=== PATIENT | female | born 1950 | race Caucasian/White ===

== ENCOUNTER 2022-12-16 11:00 | Outpatient (RCR) | payer MEDICARE, SELFPAY | END 2023-04-15 23:59 | disposition home or self-care (01) | PROVIDERS: PCP Physician Assistant Medical; Visit Provider Physician Assistant Medical | DX: M62.89 Other specified disorders of muscle (principal); Z51.89 Encounter for other specified aftercare | CPT/HCPCS: 97110; 97140; 97162; 97163; 97535 ==

== ENCOUNTER 2023-02-26 09:29 | Emergency (ER) | payer MEDICARE, SELFPAY ==
[2023-02-26 09:35] VITALS: BP 119/77; PULSE 68; RESP 16; TEMP 35.9; O2SAT 97; BMI 20.4
--- NOTE | 2023-02-26 09:55 | CRLHL7_ITS ---
For Patients: As a result of the Cures Act, medical imaging exams and procedure reports are released immediately into your electronic medical record. You may view this report before your referring provider. If you have questions, please contact your health care provider. Indication: New onset pain. Fall 6 weeks prior. Technique: PA chest, AP and oblique right ribs (3 images) Comparison: None Findings: There are fractures of the right 8th, 9th and 10th ribs, best demonstrated on the oblique radiographs of the right ribs, image 3). Minor blunting of the right lateral costophrenic angle is consistent with associated small pleural or extrapleural hematoma. No right pneumothorax. Impression: Fractures of the right 8th, 9th and 10th ribs associated with the small pleural or extrapleural hematoma. No right pneumothorax. Dictated by Yamil Caceres MD @ 02/26/2023 10:31:55 AM (Electronically Signed)
--- NOTE | 2023-02-26 09:55 | ED.GENADULT ---
HPI - General Adult General Stated complaint: fall 6 wk ago, pain flare up Time Seen by Provider: 02/26/23 09:45 History of Present Illness HPI narrative: Patient is a delightful 72-year-old female who fell while in [employer] stepped on her dress and landed on a chair arm on her right lateral chest wall area. She did not have this x-rayed at the time she was doing better and was getting improved. She got an RSV shot about 5 days ago and since then has had increasing pain in her right chest wall in the area that she fell. She has had no fever cough. No chills or rigors. She otherwise is very healthy other than she has a history of idiopathic alopecia. No other complaints, no rigors or chills. Hurts worth was with a deep breath. Related Data Home Medications Medication Instructions Recorded Confirmed No Known Home Medications 02/26/23 02/26/23 Allergies Allergy/AdvReac Type Severity Reaction Status Date / Time No Known Drug Allergies Allergy Verified 02/26/23 09:43 Review of Systems Status of ROS: Reports: 6 or more systems reviewed and unremarkable except as noted in History and below Exam Narrative: Exam Narrative: Objective: Vital signs are within normal limits Alert orient x3 no cyanosis No significant distress Patient has palpable tenderness along her midclavicular line just below the breast on the right there is no crepitus, no bruising, no masses, the patient does report that that is the area that is uncomfortable and it is palpable and reproducible. Extremities without edema Neurologic nonfocal The patient stands and moves without difficulty. Const: Vital Signs, click to edit/add: Vital Signs - 24 hr 02/26/23 09:35 Temperature 96.7 F L Pulse Rate [Pulse Oximeter] 68 Respiratory Rate 16 Blood Pressure [Ri ght Upper Arm] 119/77 Pulse Oximetry 97 Oxygen Delivery Me thod Room Air Course Vital Signs Vital signs: Initial Vital Signs Temperature 96.7 F L 02/26/23 09:35 Temperature Source Temporal Artery Scan 02/26/23 09:35 Pulse Rate 68 02/26/23 09:35 Respiratory Rate 16 02/26/23 09:35 Blood Pressure 119/77 02/26/23 09:35 Blood Pressure Mean 91 02/26/23 09:35 Blood Pressure Position Sitting 02/26/23 09:35 Pulse Oximetry 97 02/26/23 09:35 Oxygen Delivery Method Room Air 02/26/23 09:35 Vital Signs Temperature 96.7 F L 02/26/23 09:35 Pulse Rate 68 02/26/23 09:35 Respiratory Rate 16 02/26/23 09:35 Blood Pressure 119/77 02/26/23 09:35 Pulse Oximetry 97 02/26/23 09:35 Oxygen Delivery Method Room Air 02/26/23 09:35 Temperature 96.7 F L 02/26/23 09:35 Pulse Rate 68 02/26/23 09:35 Respiratory Rate 16 02/26/23 09:35 Blood Pressure 119/77 02/26/23 09:35 Pulse Oximetry 97 02/26/23 09:35 Oxygen Delivery Method Room Air 02/26/23 09:35 Medical Decision Making MDM Narrative Medical decision making narrative: Patient is a 72-year-old female that fell about few weeks ago and has recurrent right chest wall pain where she fell. Certainly she could had a fracture and it is giving her some post healing pain at this point. Will rule out pneumonia with an x-ray, as well as obvious rib fracture. Disposition pending findings. Patient also reports that she hit her right cheek into a car door, and has had a little bit a crunching sound since when she chews. She is able open her mouth fully talk fully without difficulty. On examination the patient has mild TMJ tenderness on the right but no swelling no redness I think this is just from the mild trauma and I think observation be appropriate at this time. Addendum 10:10 a.m.: The patient's x-ray by my read looks unremarkable I do not see any obvious displaced rib fracture, certainly there could be a small rib fracture. I think she has intercostal spasm and probably some chondral pain. I think some ibuprofen or anti-inflammatory be helpful for that as well as her TMJ area. Recheck with regular doctor next 5-7 days not improving changes concerns worsening would try the ibuprofen and ice to the chest for the next several days. Discharge Plan Discharge Clinical Impression: Chest wall pain, Jaw pain Patient Disposition: Home, Self-Care Condition: Stable Additional Instructions: Light activity, ibuprofen if you can take that for the next several days preps 2 tablets 3 times a day for 5 days. Ice to the affected areas of discomfort, recheck with regular doctor in 5-7 days. Return to ED sooner problems or concerns. Activity Level: Light activity Discharge Diet: Regular Prescriptions: No Action No Known Home Medications Follow Up/Referrals: Johanna Buchanan PA-C [Primary Care Provider] - Stand Alone Forms: [employer] Info Instructions
== END 2023-02-26 10:25 | disposition home or self-care (01) ==
LOC: ED 10:19
PROVIDERS: Emergency Provider Family Medicine; PCP Physician Assistant Medical
DX: S22.41XA Multiple fractures of ribs, right side, initial encounter for closed fracture (principal); R68.84 Jaw pain; W01.190A Fall on same level from slipping, tripping and stumbling with subsequent striking against furniture, initial encounter
CPT/HCPCS: 71101; 99283; 99284

== ENCOUNTER 2023-05-05 20:15 | Emergency (ER) | payer MEDICARE, SELFPAY ==
[2023-05-05 20:45] VITALS: BP 139/86; PULSE 73; RESP 16; TEMP 36.2; O2SAT 100; BMI 20.5
--- NOTE | 2023-05-05 20:50 | CRLHL7_ITS ---
For Patients: As a result of the Cures Act, medical imaging exams and procedure reports are released immediately into your electronic medical record. You may view this report before your referring provider. If you have questions, please contact your health care provider. INDICATION: Fall, injury COMPARISON: None. TECHNIQUE: Three views right wrist. FINDINGS: BONES: Clothing artifact. Nondisplaced appearing intra-articular right distal radial fracture. No significant articular surface step-off or gap seen. Normal mineralization. No focal bone lesion. JOINT: Normal wrist joint alignment. Joint spaces: Normal. Soft Tissues: Normal. No foreign body. IMPRESSION: Nondisplaced appearing intra-articular right distal radial fracture. Dictated by Josselin Wu MD @ 05/05/2023 9:41:05 PM (Electronically Signed)
--- NOTE | 2023-05-05 20:50 | CRLHL7_ITS ---
For Patients: As a result of the Century Cures Act, medical imaging exams and procedure reports are released immediately into your electronic medical record. You may view this report before your referring provider. If you have questions, please contact your health care provider. INDICATION: Fall, injury COMPARISON: None. TECHNIQUE: Three views left wrist. FINDINGS: BONES: Slightly comminuted left distal radial intra-articular fracture. There is flattening of the normal radial inclination and volar tilt. Central articular surface step-off of at least 3 mm. Chronic appearing deformity of the ulnar styloid may be related to a remote fracture. Low bone mineral density. No focal bone lesion. JOINT: Normal wrist joint alignment. Joint spaces: Normal. Soft Tissues: Normal. No foreign body. IMPRESSION: Slightly comminuted intra-articular left distal radial fracture. Dictated by Josselin Wu MD @ 05/05/2023 9:39:24 PM (Electronically Signed)
--- NOTE | 2023-05-05 20:50 | ED_ITS ---
HPI - General Adult General Time Seen by Provider: 20:50 Date Seen: 05/05/23 Chief complaint: Fall/Minor Trauma Stated complaint: wrist and head injury after fall Time Seen by Provider: 05/05/23 20:23 Source: patient and RN notes reviewed Mode of arrival: ambulatory Limitations: no limitations History of Present Illness HPI narrative: This 72-year-old female is ambulatory into the ED accompanied by her after a fall at home. She was outside, stop to case picker a decorations that had blown over in the wind. Her neighbor's dog marked when she was walking back in the house, she looked up, missed seen a rock in front of her and fell over this. She notes that she landed primarily on her left wrist, did hit her right forehead, must have hurt her right wrist somehow as it is bothering her. Denies any numbness tingling. She takes no blood thinners, is on no medicines per her . There was no loss of consciousness. No neck pain, no back pain, no difficulty breathing, no chest wall pain. She has no pain in her shoulders or elbows, pain is isolated in both wrists with a left 1 being the worst. She can still feel her fingers. No abdominal pain. She has no pain in her lower extremities. She has been ambulatory since the event. This event happened just prior to arrival. Related Data Home Medications Medication Instructions Recorded Confirmed No Known Home Medications 02/26/23 02/26/23 Allergies Allergy/AdvReac Type Severity Reaction Status Date / Time No Known Drug Allergies Allergy Verified 02/26/23 09:43 Review of Systems Status of ROS: Reports: 6 or more systems reviewed and unremarkable except as noted in History and below Exam Const: Vital Signs, click to edit/add: Vital Signs - 24 hr 05/05/23 20:45 Temperature 97.1 F L Pulse Rate [Femora l] 73 Respiratory Rate 16 Blood Pressure [Ri ght Upper Arm] 139/86 Pulse Oximetry 100 Oxygen Delivery Me thod Room Air This 72-year-old female is ambulatory into the ED albeit carefully with her wrists. She is alert, interactive, no apparent distress. GCS is 15/15. She has a right frontal forehead swelling/hematoma, no open wound. Was wearing a stocking cap, later when it was removed, can see patient does have alopecia. Pupils are equal round reactive, extraocular muscles intact. Lower face is symmetric, atraumatic. No drainage from nares or ear canals. No midline tenderness over neck, lungs are clear, good air entry no wheezing or crackles, no back pain. CV regular rate and rhythm, no murmur, normal S1-S2, no S3-S4. Abdomen is soft, nontender, nondistended, no masses noted. She has no pain on palpation of her pelvis her lower extremities. She can wiggle fingers on both hands, normal neurovascular status bilaterally. There is swelling on the dorsum of both wrists along the distal radius, left worse than right. She does not want to move the left wrist due to pain, do not feel any snuffbox tenderness. Right wrist is similar but less swelling, no snuffbox tenderness. She has no pain in the forearms, elbows, humeri bilaterally / shoulders/clavicles. Documenting provider has reviewed patient's vital signs: yes Course Course ED Course: Patient will have a head CT to rule out any acute intracranial pathology. Will x-ray both wrists to rule out fracture. She will be given 1000 mg of Tylenol for initial pain management as discussed with her. Reevaluation(s) Time of Reevaluation #1: 21:53 Reevaluation #1: Just completed application of 2 short-arm dorsal volar splint using Ortho Glass. Patient tolerated procedure well, no immediate complications. Did review with her that she has bilateral wrist fractures. she is aware that I will be talking to Orthopedics. Time of Reevaluation #2: 22:21 Reevaluation #2: did review with patient and her that the are planning on trying to managed non operatively upon my discussion with Orthopedics. They are happy to hear this. We are going to get her a sling, her left arm is more problematic and she states it is throbbing now. Will have her use the sling on this arm. We will send her home with some tramadol from [facility] she needs something stronger for pain outside of [id number] medicines. Consultations Consultation #1: Just spoke with Leah BONDS from Orthopedics. Plan will be for attempts at non operative management. We will provide orthopedic phone number so if there is any issues through the weekend that they can be contacted. Otherwise, actually will have her office contact the patient in the morning to get scheduled for follow-up next week. Time: 21:56 Vital Signs Vital signs: Initial Vital Signs Temperature 97.1 F L 05/05/23 20:45 Temperature Source Temporal Artery Scan 05/05/23 20:45 Pulse Rate 73 05/05/23 20:45 Pulse Strength 3+ Normal 05/05/23 20:45 Respiratory Rate 16 05/05/23 20:45 Blood Pressure 139/86 05/05/23 20:45 Blood Pressure Mean 103 05/05/23 20:45 Blood Pressure Position Sitting 05/05/23 20:45 Pulse Oximetry 100 05/05/23 20:45 Oxygen Delivery Method Room Air 05/05/23 20:45 Vital Signs Temperature 97.1 F L 05/05/23 20:45 Pulse Rate 73 05/05/23 20:45 Respiratory Rate 16 05/05/23 20:45 Blood Pressure 139/86 05/05/23 20:45 Pulse Oximetry 100 05/05/23 20:45 Oxygen Delivery Method Room Air 05/05/23 20:45 Temperature 97.1 F L 05/05/23 20:45 Pulse Rate 73 05/05/23 20:45 Respiratory Rate 16 05/05/23 20:45 Blood Pressure 139/86 05/05/23 20:45 Pulse Oximetry 100 05/05/23 20:45 Oxygen Delivery Method Room Air 05/05/23 20:45 Medications Administered Medications: Generic Name Dose Route Start Last Admin Trade Name Freq PRN Reason Stop Dose Admin Acetaminophen 1,000 mg 05/05/23 20:55 05/05/23 21:06 Acetaminophen 500 Mg Tablet PO 05/05/23 20:56 1,000 mg ONCE ONE Administration Medical Decision Making Imaging Data CT scan - head: Attestation: I have reviewed the pertinent imaging results. Radiologist's impression: Patient: HALEIGH JONES Facility:?[facility] Patient ID:?[id number] Site Patient ID:?[id number]. Site :?[id number] Study:?CT Head W/O-05/05/2023 9:16:03 PM Ordering Physician:Ramon Santana Final Report: INDICATION: Fall. Head injury. COMPARISON: None. TECHNIQUE: Noncontrast CT head. FINDINGS: Focal scalp swelling hematoma adjacent to the right frontal calvarium consistent with reported trauma. No underlying fracture. Normal brain parenchymal morphology. No acute intracranial hemorrhage, acute infarct, mass effect, or fracture. No midline shift. No abnormal ventricular dilatation. Normal calvarium and skull base. Visualized paranasal sinuses mastoid air cells are clear. IMPRESSION: 1. No acute intracranial abnormality. 2. Focal scalp swelling and hematoma adjacent to the right frontal calvarium consistent with reported trauma. No underlying fracture Please note that all CT scans at this facility use dose modulation, iterative reconstruction, and/or weight-based dosing when appropriate to reduce radiation dose to as low as reasonably achievable. Dictated by Nelson Schuster MD @ 05/05/2023 9:22:17 PM (Electronic Signature) XR wrists: Attestation: I have reviewed the pertinent imaging results. My impression: I see bilateral distal radius fractures. I do not see that the need any reduction. Will plan on doing short-arm splint. Await Radiology over-read. Radiologist's impression: Patient: HALEIGH JONES Facility:?[facility] Patient ID:?[id number] Site Patient ID:?[id number]. Site :?[id number] Study:?XRay Extremity Left wrist 3v-05/05/2023 9:27:38 PM Ordering Physician:Ramon Santana Final Report: INDICATION: Fall, injury COMPARISON: None. TECHNIQUE: Three views left wrist. FINDINGS: BONES: Slightly comminuted left distal radial intra-articular fracture. There is flattening of the normal radial inclination and volar tilt. Central articular surface step-off of at least 3 mm. Chronic appearing deformity of the ulnar styloid may be related to a remote fracture. Low bone mineral density. No focal bone lesion. JOINT: Normal wrist joint alignment. Joint spaces: Normal. Soft Tissues: Normal. No foreign body. IMPRESSION: Slightly comminuted intra-articular left distal radial fracture. Dictated by Josselin Wu MD @ 05/05/2023 9:39:24 PM (Electronic Signature) Patient: HALEIGH JONES Facility:?[facility] Patient ID:?[id number] Site Patient ID:?[id number]. Site :?[id number] Study:?XRay Extremity Right wrist 3v-05/05/2023 9:27:50 PM Ordering Physician:Ramon Santana Final Report: INDICATION: Fall, injury COMPARISON: None. TECHNIQUE: Three views right wrist. FINDINGS: BONES: Clothing artifact. Nondisplaced appearing intra-articular right distal radial fracture. No significant articular surface step-off or gap seen. Normal mineralization. No focal bone lesion. JOINT: Normal wrist joint alignment. Joint spaces: Normal. Soft Tissues: Normal. No foreign body. IMPRESSION: Nondisplaced appearing intra-articular right distal radial fracture. Dictated by Josselin Wu MD @ 05/05/2023 9:41:05 PM (Electronic Signature) Discharge Plan Discharge Clinical Impression: Traumatic hematoma of forehead Qualifiers: Encounter type: initial encounter Qualified Code(s): S00.83XA - Contusion of other part of head, initial encounter Closed fracture of both wrists Qualifiers: Encounter type: initial encounter Qualified Code(s): S62.101A - Fracture of unspecified carpal bone, right wrist, initial encounter for closed fracture Fall Qualifiers: Encounter type: initial encounter Qualified Code(s): W19.XXXA - Unspecified fall, initial encounter Patient Disposition: Home, Self-Care Condition: Stable Instructions: Wrist Fracture in Adults (ED), Hematoma (ED) Additional Instructions: Can use ice pack to your forehead, both wrist to help decrease pain and swelling. Elevate the wrists to decrease further swelling. Can use Tylenol and ibuprofen per bottle directions as needed for pain control. Have provided a prescription of tramadol for more severe pain, follow instructions for this. The splints need to stay clean and dry. You will need assistance with activit ies of daily living such as bathing and toileting, making and possibly even eating your food. The orthopedic clinic will be contacting you tomorrow to get you scheduled for a follow-up next week. If you are having problems with your wrist fractures over the weekend, can call the Orthopedic number to have the orthopedic PA paged. Phone number is [phone]. Prescriptions: No Action No Known Home Medications Follow Up/Referrals: Johanna Buchanan PA-C [Primary Care Provider] - Stand Alone Forms: [employer] Info Instructions
--- NOTE | 2023-05-05 20:50 | CRLHL7_ITS ---
For Patients: As a result of the Cures Act, medical imaging exams and procedure reports are released immediately into your electronic medical record. You may view this report before your referring provider. If you have questions, please contact your health care provider. INDICATION: Fall. Head injury. COMPARISON: None. TECHNIQUE: Noncontrast CT head. FINDINGS: Focal scalp swelling hematoma adjacent to the right frontal calvarium consistent with reported trauma. No underlying fracture. Normal brain parenchymal morphology. No acute intracranial hemorrhage, acute infarct, mass effect, or fracture. No midline shift. No abnormal ventricular dilatation. Normal calvarium and skull base. Visualized paranasal sinuses mastoid air cells are clear. IMPRESSION: 1. No acute intracranial abnormality. 2. Focal scalp swelling and hematoma adjacent to the right frontal calvarium consistent with reported trauma. No underlying fracture Please note that all CT scans at this facility use dose modulation, iterative reconstruction, and/or weight-based dosing when appropriate to reduce radiation dose to as low as reasonably achievable. Dictated by Nelson Schuster MD @ 05/05/2023 9:22:17 PM (Electronically Signed)
[2023-05-05] MEDS: ACETAMINOPHEN 500 MG TABLET 1000 MG PO (21:06)
== END 2023-05-05 22:51 | disposition home or self-care (01) ==
PROVIDERS: Emergency Provider Family Medicine; PCP Physician Assistant Medical
DX: S00.83XA Contusion of other part of head, initial encounter (principal); S62.101A Fracture of unspecified carpal bone, right wrist, initial encounter for closed fracture; S52.572A Other intraarticular fracture of lower end of left radius, initial encounter for closed fracture; W19.XXXA Unspecified fall, initial encounter
CPT/HCPCS: 29125; 70450; 73110; 99284; A9270

== ENCOUNTER 2023-09-02 15:00 | Outpatient (RCR) | payer MEDICARE, SELFPAY ==
--- NOTE | 2023-05-13 07:18 | OT.OPOE ---
OT Outpatient Ortho Eval OT Outpatient Ortho Eval* Start: 05/11/23 11:37 Freq: Status: Active Protocol: Document 05/11/23 11:37 AMB (Rec: 05/11/23 16:50 AMB [id number]) E-signed By Elva Krishna, OTR/L, CLT, LEATHER DRESSER OT OP Ortho Eval Details Complexity Complexity Low Insurance Information Insurance Information [employer] Insurance Information Comments Pt will have re-check with orthopedics on 06/07/23 Outpatient History/Precautions Current Condition/Medical Diagnosis Referring Provider Dr Louis Treatment Diagnosis Pain, swelling, limited AROM and weakness in BUE secondary to BUE wrist fx Date of Onset 05/05/23 Precautions Lifting Restrictions,Range of Motion Other Precautions No ROM of wrists / forearm yet , can start ROM of fingers, elbow, shoulders Other Conditions Alopecia, pt also had a fall in February of 2023 which resulted in a couple of rib fractures, states at that time she was in tenriism and stepped on her dress causing her to fall. Medical/Functional History Medical History Reviewed Yes Prior Level of Function/Mobility Full, pain-free use of BUE prior to fall with BUE wrist fx. 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 [employer] Orth[employer] Subjective Subjective Subjective Pt states she fell outside on 05/05/23, she landed on both of her hands and also hit her head. Pt states she had went to machine operator hop picker something that had fallen and was walking back towards her home when she heard a dog barking, she looked up and didn't see a rock, she tripped over it causing her fall. Pt states she went to the ER and was referred to orthopedics who determined that she could heal without surgery and she was quite happy about this. Pt states she did have a CT of her head and they did not find any bleeding, just a hematoma on her forehead. Pt states her pain is pretty well managed, using OTC medication. Pt states she is really needing to rely on her to help her with everything, including bathing, dressing, meal prep, quality engineer medical device, etc. PT states she is really missing her ability to type and write as she is an author, she also immensely enjoys Yoga, trying to do a littl of this during her day. Pt generally works as an end-of- life central office repairer as well, which she is currently unable to do. Pain Assessment Pain Present Pain Present Pain Reported Goniometric Comments Goniometric Comments Goniometric Comments 05/11/23 Pt demonstrates full, pain-free AROM and strength of BUE shoulders and elbows. Too soon to test forearms, wrists and hands. OT Problems Problems Problems Decreased Strength,Decreased Range of Motion,Decreased Dexterity,Pain,Decreased Coordination,Lifting,Gripping, Pinching Other Problems Writing,Opening Containers, Dressing,Computer,Fasteners, Sleeping Patient Potential Good Assessment Assessment Assessment Pt is a very pleasant 72yo right hand dominant woman who tripped and fell on 05/05/[address] fx with the right being nondisplaced intra -articular DR fx and the left being mildly displaced DR fx with intra-articular extension and 7-8 degrees of dorsal angulation. Pt was referred to OT for custom orthotic fabrication for protected healing of the RUE / cast care . Recommendations also to initiate ROM and strengthening when appropriate. Pt demonstrates pain, swelling, limited ROM and weakness in BUE which limits her independence with self cares, meal prep, cleaning, typing / writing and Yoga. Pt will benefit from skilled OT intervention to address custom orthotic needs and rehabilitation of BUE in order to restore full, pain-free use of her BUE and improve safety and independence with self cares and IADLs / leisure activities. Occupational Therapy Treatment Plan - OP Potential Rehabilitation Potential Good Set Goals Goals Set with Patient Yes Goals Goals 1. Pt will be independent and compliant with HEP in order to resume full, pain-free use of BUE. 3 weeks 2. Pt will demonstrate full, pain-free AROM of BUE in order to improve ability to grasp and hold. 6 weeks 3. Pt will demonstrate functional, pain-free gastrointestinal technician and pinch strength comparable to average for age and gender in order to improve functional grasp, hold, reach, and lifting ability needed to complete self-care, leisure tasks, and household IADLs in 8 weeks. Target Date 08/10/23 Treatment Plan Treatment Plan Evaluation,Edema Control,Joint Mobilization,Manual Therapy, Splinting,Therapeutic Exercise ,Therapeutic Activities,Self Care/Home Management,Education Expected Frequency 1-2x Week Expected Duration 8-10 Weeks Home Program Home Program Home Program Initiated Home Program Specifics Provided training and practice in HEP for pain-free AROM of fingers, thumbs, elbows, and shoulders. Following demo, pt is able to complete exs with minimal cues. Pt was provided written instructions for home use as well. Recertification Information Recertification Information Initial Certification Date 05/11/23 Recertification Due Date 08/09/23 Reasons to Continue Skilled Therapy Initiated OT today to address custom splinting needs for protected healing of the RUE DR weaver. Pt will also f/u for rehabilitation of BUE DR meg to improve ROM, strength, and functional use of BUE. Rehabilitation Potential Good Click To Default 'Per treatment plan' Per treatment plan Continued Plan of Care and Interventions Per treatment plan Provider Signature Shows Agreement With POC & Medical Necessity Physician Comment/Change Comment or Changes Physician NPI Number #
== END 2023-12-31 23:59 | disposition home or self-care (01) ==
PROVIDERS: PCP Physician Assistant Medical; Visit Provider Orthopaedic Surgery Sports Medicine
DX: S62.101A Fracture of unspecified carpal bone, right wrist, initial encounter for closed fracture (principal); S62.102A Fracture of unspecified carpal bone, left wrist, initial encounter for closed fracture; Z51.89 Encounter for other specified aftercare
CPT/HCPCS: 97110; 97140; 97165; 97530; L3906; X5282

== ENCOUNTER 2024-12-20 22:28 | Emergency (ER) | payer MEDICARE, SELFPAY ==
--- OUTSIDE RECORDS SUMMARY | 2024-12-20 22:30 | XMS_ITS | Clinical Summary ---
Author Organization [facility] Address [address] [place] [id number] Care Team Providers Care Rasper Machine Operator Name Role Phone Mar Bolaños DO Primary Care Provider Allergies No known active allergies Medications lipase-proteas e-amylase (CREON) 24,000-76,000 -120,000 unit cpDR delayed-releas e capsuleIndicat ions:Chronic diarrhea Take 2 Capsules by mouth three times daily with meals. 180 Capsule 1 5 Active cholecalcifero l (VITAMIN D3) 50,000 unit capsuleIndicat ions:Vitamin D deficiency Take 1 Capsule (50,000 units) by mouth once weekly. 8 Capsule 1 5 Active loperamide 2 mg capsuleIndicat ions:Chronic diarrhea Utilizes 1 capsule as needed for diarrhea. 5 Active medication order composerIndica tions:Chronic diarrhea Pure Encapsulations Nutrient 950 + Vitamin K Multi vitamin/mineral-28 ingredients - daily 2 capsules (3 is serving size) 1 MD maynor bhakta MD (krill oil) - 2 soft gels daily OM Vitamin D3 w/ K2 - holding - prescription vitamin D [facility] & Brain function [place]'s Wort 250 mg and L-glutamine 150 mg - 1 capsule at lunch Minerals Magnesium Oil 2 sprays/morning and night (4 total) on bottoms of feet - 2 sprays in AM, 2 sprays in PM [place] Collagen Peptides 20 scoops after breakfast [place] 7.5 g Collagen Peptides: Bone density & recovery, digestion Bovine Collagen - 5 g Fortibone 2.5 g Verisol 1 scoop after dinner/bedtime [place] mixed justice absentee-shawnee hydrate (electrolytes and aa) - 1 scoop daily [place] B12 chewable 1000 mcg - 1 tablet daily Vitamin C - temporarily holding VSL #3 - 1 daily Vital nutrients pancreatin and ox bile - holding NOW betaine HCL - 3 capsules with food (each meal) 5 Active Active Problems Problem Noted Date Diagnosed Date Routine adult health maintenance 05/20/2016 Overview (05/20/2016): Colonoscopy 04/2016 normal repeat in 10 years Alopecia 08/20/2013 Osteopenia 04/23/2010 Pain in joint, ankle and foot 12/06/2007 Encounters Date Type Department Care Team Description 11/29/2024 1:30 PM CDT Nurse/Clinic Staff Only [facility] [address] [place] [address] Immunization/Injection (COVID-19 VACCINE); Immunization/Injection 11/29/2024 Travel 11/24/2024 Travel from Last 3 Months Immunizations Immunization Administration Dates Next Due AMB INFLUENZA IIV3 (AGE 65+ YRS) PF (Flu Clinic Only) 02/13/2019,03/01/2018,02/17/2017 AMB Influenza, IIV3 (Age >=3 years)(Flu Clinic Only) 02/14/2008 Amb Influenza, Inact (High-d ose) (Flu Clinic Only) 01/10/2015,01/11/2014 Amb Influenza, Inactivated A IIV4 (Age 65+ Years) Preserv Free 02/11/2020 COVID-19 VACCINE SPIKEVAX (M ODERNA 50MCG/0.5ML) 12YO+ PFS 11/29/2024 COVID-19 vaccine (FaceTagsBio NTech 30mcg/0.3mL) 12YO+ ISRAEL-SUCROSE PF, MDV 08/28/2021 COVID-19 vaccine (Molecular Biometrics-Bio NTech 30mcg/0.3mL) PF, MDV 02/18/2021 Influenza, High-dose Inactivated 02/09/2024 Influenza, High-dose Quadriv alent Inactivated 01/27/2022 Influenza, IIV3 (Age >=3 years) 02/06/20 13,03/07/2012,12/24/2009,02/21 Influenza, Inactivated AIIV4 (Age 65+ Years) Preserv Free 02/08/2023,02/18/2021 Pneumococcal Poly,23-Valent (Pneumovax) 04/03/2020 Pneumococcal conj 13-Valent (Prevnar 13) 03/20/2019 RSV, Recombinant ADJ Reconst ituted (Arexvy 120MCG/0.5mL) 02/21/2023 Tdap 08/30/2024,11/18/2008 Zoster (Shingrix-RZV, recombinant) 04/29/2020, Family History Medical History Relation Name Comments Good Health Father Meek Reyes Diabetes Maternal Grandmother Lucy Dementia Mother Zack Depression Mother Zack Other Mother Zack macular degener ation Heart Disease Paternal Grandfather Meek A Heart failure Paternal Grandfather Meek A Stroke Paternal Grandfather Meek A Stroke Paternal Uncle Sebastien Obesity Sister Marjan Osteoarthritis Sister Marjan Cancer-breast No Family History Cancer-ovarian No Family History Relation Name Status Comments Father Meek Reyes Maternal Grandmother Lucy Mother Zack Paternal Grandfather Meek A Paternal Uncle Sebastien Sister Marjan Social History Tobacco Use Types Packs/Day Years Used Date Smoking Tobacco: Never Smokeless Tobacco: Never Tobacco Cessation:Counseling Given: Not Answered Alcohol Use Standard Drinks/Week Comments Not Currently 1 (1 standard drink = 0.6 oz pur e alcohol) occasional wine PHQ-2 Answer Date Recorded PHQ-2 TOTAL SCORE 0 07/11/2024 Social Connections Answer Date Recorded Do you often feel lonely or isolated from those around you? 0 07/09/2024 Financial Resource Strain Answer Date R ecorded Difficulty of Paying Living Expenses 3 07/09/2024 Difficulty of Paying Living Expenses Not on file 07/09/2024 Food Insecurity Answer Date Recorded Do you worry your food will run out before you are able to buy more? 1 07/09/2024 Transportation Needs Answer Date Record ed Does lack of transportation keep you from medica l appointments? 1 07/09/2024 Does lack of transportation keep you from work, meetings or getting things that you need? 1 07/09/2024 Housing Stability Answer Date Recorded What is your housing situation today? 1 07/09/2024 Utilities Answer Date Recorded Do you have trouble paying f or utilities (for example, heat, electricity, water, phone)? 1 07/09/2024 Comments No Sex and Gender Information Value Date Recorded Sex Assigned at Female 02/14/2021 8:49 PM CDT Legal Sex Female 5:43 AM CLINICAL STUDY MANAGER Gender Identity Not on file Sexual Orientation Straight 02/14/2021 8: 48 PM CDT Obstetrics History Para Term AB IAB SAB Ectopic Multiple Livin g Live Births 4 4 Date Outcome GA Total Labor Labor/2nd/3rd Weight Sex Type Anes PTL Jenna A1 A5 Name Clin Last Filed Vital Signs Vital Sign Reading Time Taken Comments Blood Pressure 112/72 07/11/2024 11:43 AM CDT Pulse 75 07/11/2024 10:49 AM CDT Temperature 36.9 C (98.5 F) 02/19/2022 1:42 PM CDT Respiratory Rate - - Oxygen Saturation 99% 07/11/2024 10:49 AM CDT Inhaled Oxygen Concentration - - Weight 61.4 kg (135 lb 6.4 oz) 07/11/2024 10:49 AM CDT Height 161.8 cm (5' 3.7) 07/11/2024 10:49 AM CD T Body Mass Index 23.46 07/11/2024 10:49 AM CDT Plan of Treatment Health Maintenance Due Date Last Done Comments Influenza Vaccine (#1) 2024 , 02/08/2023, 02/18/2021, Additional history exists BMI (ht and wt on same day) for age 18+ 07/11/2025 07/11/2024, 06/29/2023, 03/15/2022, Additional history exists Depression screening for age 12+ 07/11/2025 07/11/2024, 06/29/2023, 06/29/2023, Additional history exists Medicare Wellness for age 65+ 07/12/2025 07/11/2024, 06/29/2023, 03/15/2022, Additional history exists Tetanus booster 08/30/2034 08/30/2024, 11/18/2008 Pneumococcal series for age 50+ Completed 04/03/2020, 03/20/2019 Zoster (shingles) series for age 50+ Completed 04/29/2020, 01/08/2020 DEXA/DXA scan for age 65+ Completed 2021, 11/02/2018, 09/08/2012, Additional history exists Hepatitis C screening for age 18-79 Completed 03/15/2022 RSV vaccine for adults or Completed 02/21/2023 COVID-19 vaccine series Completed 11/30/19 25, 02/24/2024, 03/21/2023, Additional history exists Hepatitis B series for 19+ Aged Out N o longer eligible based on patient's age to complete this topic Procedures Procedure Name Priority Date/Time Associated Diagnosis Comments XR DXA BONE DENSITY 2 SITES AXIAL Routine 03/15/2022 2:15 PM CLINICAL STUDY MANAGER Osteoporosis, unspecified osteoporosis type, unspecified pathological fracture presence ANTI HCV Routine 03/15/2022 1:45 PM CLINICAL STUDY MANAGER Need for hepatitis C screening test from Last 3 Months or Most Recently Relevant to Health Maintenance Results * (ABNORMAL) XR DXA BONE DENSITY 2 SITES AXIAL (03/15/2022 2:15 PM CLINICAL STUDY MANAGER) Anatomical Region Laterality Modality Spine, HIPS, HIPL, HIPR Other Impressions 03/15/2022 4:53 PM CLINICAL STUDY MANAGER Osteoporosis. RECOMMENDATIONS: The National Osteoporosis Foundation recommends pharmacologic treatment for patients with T-scores of -2.5 or less, patients with prior history of fragility fractures, or patients with 10-year probability of greater than 3% at hips or greater than 20% of suffering major osteoporotic fractures. Recommend continued optimization of calcium and vitamin D intake through dietary means and/or supplementation and regular exercise. Consider pharmacologic therapy for osteoporosis. Follow-up bone density reading in 2 years if therapy initiated to assess therapeutic efficacy. Johanna Buchanan PA-C [facility] 03/15/2022 Narrative 03/15/2022 4:53 PM CLINICAL STUDY MANAGER For Patients: Results are automatically released to your [employer] ([employer]) account once available, in compliance with federal regulations. This means that you may see your results before your provider has had a chance to review them. Please allow 2-3 business days for your provider to comment on the results. XR DXA Bone Mineral Density (BMD) EXAM LOCATION: [facility] [address] [facility] [address] PATIENT NAME: Yanira Contreras DATE OF : 1950 EXAM DATE: 03/15/2022 REQUESTING PROVIDER: Johanna Buchanan PA GENDER AT : female HEIGHT: 5' 3.75 (03/15/2022) WEIGHT: 119 lb (03/15/2022) MENOPAUSAL STATUS: Postmenopausal RACE/ETHNICITY: White RISK FACTORS: Weight < 127 lbs. and White Race CURRENT MEDICATION FOR BONE LOSS: NONE INDICATION: Follow-up of existing osteoporosis and Post-Menopause COMPARISON DATE(S): 2019 DXA scans are compared to prior studies for a patient only when the two (or more) studies were performed on the same scanner. It is not possible to compare data generated on one scanner to data from another because there are not standards in DXA equipment. This applies even if the two scanners are made by the same component design engineer. PROCEDURE: Dual-energy x-ray absorptiometry performed with routine technique. Reporting is completed in the form of a T-score. The T-score represents the standard deviation from peak bone mass based on young healthy adult. A Z-score is used for diagnosis in premenopausal women, and for men under the age of 50. FINDINGS: RESULT LUMBAR SPINE L1 - L4 BMD: 0.964 g/cm2 T-Score: - 1.9 Z-Score: + 0.2 Change from prior in 2019: Decrease 5.1%. RESULTS FEMUR Left femoral neck BMD: 0.692 g/cm2 T-Score: - 2.5 Z-Score: - 0.4 Change from prior in 2019: Decrease 3.1%. Right femoral neck BMD: 0.710 g/cm2 T-Score: - 2.4 Z-Score: - 0.3 Change from prior in 2019: Increase 2.0%. Left hip BMD: 0.667 g/cm2 T-Score: - 2.7 Z-Score: - 0.8 Change from prior in 2019: Decrease 2.9%. Right hip BMD: 0.700 g/cm2 T-Score: - 2.4 Z-Score: - 0.5 Change from prior in 2019: Increase 0.1%. WHO criteria: Normal: T-score at or above -1 SD Osteopenia: T-score between -1.1 and -2.4 SD Osteoporosis: T-score at or below -2.5 SD Johanna BONDS DEXA Final R esult * ANTI HCV (03/15/2022 1:45 PM CLINICAL STUDY MANAGER) HEPATITIS C ANTIBODY Non-React brian Non-React brian 03/16/2022 9:47 PM CLINICAL STUDY MANAGER [facility] Comment:Antibodies to HCV no t detected; does not exclude the possibility of exposure to HCV. Blood BLOOD SPECIMEN / Unknown Venipuncture / Unknown 03/15/2022 1:45 PM CLINICAL STUDY MANAGER 03/15/2022 1:49 PM CLINICAL STUDY MANAGER Johanna BONDS SEND OUTS Final R esult [facility] [address] [place] [address], from Last 3 Months or Most Recently Relevant to Health Maintenance Insurance [facility] MEDICARE ADVANTAGE MR Care Teams Rasper Machine Operator Relationship Specialty Start Date End Date [place] [address] PCP - General Family Practice 06/29/23
[2024-12-20 22:51] VITALS: BMI 22.1
[2024-12-20 23:02] VITALS: BP 134/76; PULSE 70; RESP 18; TEMP 36.8; O2SAT 98
--- NOTE | 2024-12-20 23:22 | ED_ITS ---
HPI - Eye Problem General Date Seen: 12/20/24 Chief complaint: Eye Problems Stated complaint: something in eye Time Seen by Provider: 12/20/24 22:30 Source: patient Mode of arrival: ambulatory Limitations: no limitations History of Present Illness HPI Narrative: Patient is a 74-year-old female presenting to the emergency department for right eye pain. She states around 22:00 she accidentally squirted some desert tea facial wash into her right eye. It was causing moderate discomfort so they tried to put in some sterile appointment that she was previously given by her steam conditioner filling for a stye. Continued to have discomfort to the eye so came to the emergency department. No other concerns noted at this time. No previous eye issues. Does state her vision feels blurry. Related Data Home Medications ?Medication ?Instructions ?Recorded ?Confirmed No Known Home Medications 02/26/23 04/06/18 Allergies Allergy/AdvReac Type Severity Reaction Status Date / Time No Known Drug Allergies Allergy Unverified 07/26/23 10:05 Review of Systems Narrative: Pertinent systems reviewed and were negative unless stated in HPI PFSH PFS Medical History Laceration of finger ?S61.219A - Laceration without foreign body of unspecified finger without damage to nail, initial encounter (ICD-10) Social History Narrative: -Kartik Smoking Status: Never smoker Do you use any of these nicotine containing products: None Second hand tobacco smoke exposure: No Non-prescribed substance use: denies use Exam Narrative: Exam Narrative: Const: Well-nourished, Well-developed, in mild distress Eyes: PERRL, right conjunctival injection, and symmetrical lids. No signs of abrasions on fluorescein exam HENT: Atraumatic external nose and ears. Moist mucous membranes. MSK:Extremities w/o deformity, Normal Active ROM Skin: Warm, Dry. No rashes or lesions. Neuro: Normal Muscle tone, No focal neurological deficits. Psych: Awake, Alert, & Oriented x3. Appropriate mood and affect. Const: Vital Signs, click to edit/add: Vital Signs - 24 hr 12/20/24 23:02 Temperature 98.2 F Pulse Rate [Pulse Oximeter] 70 Respiratory Rate 18 Blood Pressure [Le ft Upper Arm] 134/76 Pulse Oximetry 98 Course Vital Signs Vital signs: Initial Vital Signs Temperature 98.2 F 12/20/24 23:02 Temperature Source Temporal Artery Scan 12/20/24 23:02 Pulse Rate 70 12/20/24 23:02 Respiratory Rate 18 12/20/24 23:02 Blood Pressure 134/76 12/20/24 23:02 Blood Pressure Mean 95 12/20/24 23:02 Pulse Oximetry 98 12/20/24 23:02 Vital Signs Temperature 98.2 F 12/20/24 23:02 Pulse Rate 70 12/20/24 23:02 Respiratory Rate 18 12/20/24 23:02 Blood Pressure 134/76 12/20/24 23:02 Pulse Oximetry 98 12/20/24 23:02 Temperature 98.2 F 12/20/24 23:02 Pulse Rate 70 12/20/24 23:02 Respiratory Rate 18 12/20/24 23:02 Blood Pressure 134/76 12/20/24 23:02 Pulse Oximetry 98 12/20/24 23:02 Medications Administered Medications: Discontinued Medications Generic Name Dose Route Start Last Admin Trade Name Freq PRN Reason Stop Dose Admin Fluorescein Sodium 1 strip 12/20/24 23:24 12/20/24 23:25 Fluorescein Sodium Topical Strip EYE-RIGHT 12/20/24 23:25 1 strip ONCE ONE Administration Tetracaine HCl 1 drop 12/20/24 23:24 12/20/24 23:25 Tetracaine 0.5% Ophth EYE-RIGHT 12/20/24 23:25 1 drop ONCE ONE Administration MDM - Eye Problem MDM Narrative Medical decision making narrative: Patient is a 74-year-old female presenting for right eye pain. Poison control was contacted and they recommended washing out the eye for 10-15 minutes and then doing an eye exam. Recommend antibiotics if there are any abrasions. I do not see any abrasions on my eye exam. Was numb up the eye and will try to wash out the eye more now that it is numb and will be easier for her. After further washing all RI than looked under the eyelids do not see any foreign body. She did states she had some sensation of foreign body underneath her eye. I both visually looked and used a Q-tip. No signs of foreign body. I then looked in her eye again for any possible corneal abrasions and did not see any. At this time I do believe she is safe for discharge. She states she has an steam conditioner filling she can see in the morning. Does think her vision is slightly improved. Discharge Plan Discharge Clinical Impression: Acute chemical conjunctivitis of right eye Patient Disposition: Home, Self-Care Condition: Improved Instructions: Conjunctivitis (ED) Additional Instructions: I recommend very close follow-up with the her steam conditioner filling in the morning. Please return to the emergency department immediately for any new or worsening symptoms Prescriptions: No Action No Known Home Medications Follow Up/Referrals: Johanna Buchanan PA-C [Referring, Family Practice] Stand Alone Forms: [facility] Info Instructions
[2024-12-20] MEDS: FLUORESCEIN SODIUM TOPICAL STRIP 1 STRIP EYE-RIGHT (23:25)
[2024-12-20] MEDS: TETRACAINE 0.5% OPHTH 1 DROP EYE-RIGHT (23:25)
== END 2024-12-21 00:14 | disposition home or self-care (01) ==
PROVIDERS: Emergency Provider Student in an Organized Health Care Education/Training Program; PCP Family Medicine
DX: H57.11 Ocular pain, right eye (principal); H10.211 Acute toxic conjunctivitis, right eye
CPT/HCPCS: 99283; A9270